=== PATIENT | female | born 1980 | race American Indian/Alaskan Native ===

== ENCOUNTER 2019-04-22 12:21 | Emergency (ER) | payer OTHER ==
[2019-04-22 16:52] VITALS: BP 105/51
[2019-04-22] MEDS ORDERED: dexAMETHasone 20 MG/5 ML VIAL IM ONE (17:03)
--- NOTE | 2019-04-22 17:08 | Emergency Department Report ---
ED General Adult HPI - General Chief complaint: Back Pain/Injury Stated complaint: RT LEG NUMBNESS/RT HIP PAIN Time Seen by Provider: 04/22/19 16:27 Source: patient Mode of arrival: Ambulatory Limitations: No Limitations - History of Present Illness Initial comments: This is a 39 year female presents to the ED complaining of acute exacerbation of chronic low back pain has pain going on for about 5-6 years after her epidural during her last vaginal . Patient states the pain is worse in the past week. 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 Patient states the pain is so bad she is unable to lift the children as this pain with walking. - Related Data Home Medications Medication Instructions Recorded Confirmed Last Taken D-Methorphan/PE/Acetaminophen 07/11/13 07/11/13 Unknown [Tylenol Cold Multi-Symp Caplet] Previous Rx's Medication Instructions Recorded Last Taken Type Azithromycin [Zithromax Z-RICHA] 250 mg PO DAILY #6 tablet 07/11/13 Unknown Rx Cyclobenzaprine [Flexeril] 10 mg PO QHS PRN #20 tablet 04/22/19 Unknown Rx Ketorolac [Toradol] 10 mg PO Q8H PRN #24 tablet 04/22/19 Unknown Rx Allergies Allergy/AdvReac Type Severity Reaction Status Date / Time No Known Allergies Allergy Unverified 07/11/13 09:19 ED Review of Systems ROS: Stated complaint: RT LEG NUMBNESS/RT HIP PAIN Other details as noted in HPI Comment: All other systems reviewed and negative ED Past Medical Hx - Past Medical History Previous Medical History?: Yes Hx Psychiatric Treatment: Yes (anxiety) - Surgical History Past Surgical History?: No - Social History Smoking Status: Never Smoker Substance Use Type: None - Medications Home Medications: Home Medications Medication Instructions Recorded Confirmed Last Taken Type Azithromycin [Zithromax Z-RICHA] 250 mg PO DAILY #6 tablet 07/11/13 Unknown Rx D-Methorphan/PE/Acetaminophen 07/11/13 07/11/13 Unknown History [Tylenol Cold Multi-Symp Caplet] Cyclobenzaprine [Flexeril] 10 mg PO QHS PRN #20 tablet 04/22/19 Unknown Rx Ketorolac [Toradol] 10 mg PO Q8H PRN #24 tablet 04/22/19 Unknown Rx ED Physical Exam - General Limitations: No Limitations General appearance: alert, in no apparent distress - Head Head exam: Present: atraumatic, normocephalic - Eye Eye exam: Present: normal appearance - ENT ENT exam: Present: mucous membranes moist - Neck Neck exam: Present: normal inspection - Respiratory Respiratory exam: Present: normal lung sounds bilaterally. Absent: respiratory distress - Cardiovascular Cardiovascular Exam: Present: regular rate, normal rhythm. Absent: systolic murmur, diastolic murmur, rubs, gallop - GI/Abdominal GI/Abdominal exam: Present: soft, normal bowel sounds - Extremities Exam Extremities exam: Present: normal inspection - Back Exam Back exam: Present: normal inspection, tenderness (palpation of the right buttock and latissimus dorsi muscles), muscle spasm, other (treatment leg raise positive on the right side). Absent: CVA tenderness (R), CVA tenderness (L) - Neurological Exam Neurological exam: Present: alert, oriented X3, normal gait (but limping due to pain) - Psychiatric Psychiatric exam: Present: normal affect, normal mood - Skin Skin exam: Present: warm, dry, intact, normal color. Absent: rash ED Course Vital Signs 04/22/19 04/22/19 13:51 16:50 Temperature 98.1 F 98.1 F Pulse Rate 73 73 Respiratory 20 18 Rate Blood Pressure 121/73 105/51 O2 Sat by Pulse 98 100 Oximetry ED Medical Decision Making - Medical Decision Making 39-year-old female presents to ED with acute on chronic pain lumbar radiculopathy ED course: Patient received 10 mg of Decadron in ED. Vital signs are normal patient is in no acute distress Discussed with patient follow-up with primary care physician. [facility] patient's name to see a neurologist for treatment Discussed the patient and take medications as prescribed. Patient has no neurological deficit. Patient is alert and oriented 3 and understands all instructions given. Discussed drowsiness effect of Flexeril makes her drowsy and not to operate ma [employer] while taking flexeril Critical care attestation.: If time is entered above; I have spent that time in minutes in the direct care of this critically ill patient, excluding procedure time. ED Disposition Clinical Impression: Acute exacerbation of chronic low back pain, Sciatica of right side, Lumbar radiculopathy Disposition: TO HOME OR SELFCARE Is pt being admited?: No Does the pt Need Aspirin: No Condition: Stable Instructions: Sciatica (ED), Lumbar Radiculopathy (ED) Additional Instructions: Make sure to follow up with the primary care physician as discussed. Please follow up with the neurology saturating referred. You may need an MRI of your spine Take all your medications as you've been prescribed. If you have any worsening symptoms or develop new symptoms please return to ED immediately. Prescriptions: Cyclobenzaprine [Flexeril] 10 mg PO QHS PRN #20 tablet PRN Reason: Muscle Spasm Ketorolac [Toradol] 10 mg PO Q8H PRN #24 tablet PRN Reason: Pain Referrals: ROGERIO COSTELLO MD [Staff Physician] - 3-5 Days [facility] [Provider Group] - 3-5 Days [facility] [Provider Group] - 3-5 Days [facility] [Provider Group] - 3-5 Days Forms: Work/School Release Form(ED) Time of Disposition: 17:08
== END 2019-04-22 17:42 | disposition home or self-care (01) ==
LOC: ED 12:21
DX: M54.5 Low back pain (principal); G89.29 Other chronic pain; M54.31 Sciatica, right side; M54.16 Radiculopathy, lumbar region; F41.9 Anxiety disorder, unspecified; Z79.899 Other long term (current) drug therapy
CPT/HCPCS: 96372; 99282; J1100